=== PATIENT | male | born 1960 | race Caucasian/White ===

== ENCOUNTER 2021-11-09 10:59 | Outpatient (REF) | payer OTHER, SELFPAY ==
[2021-11-09 11:03] LABS: MANUAL DIFF FLAG NO
[2021-11-09 11:08] LABS: Basophils Percent Auto 0.5 % (0-2); Eosinophils Absolute Auto 0.2 X10*3/uL (0.0-0.4); Hematocrit 49.8 % (42.0-52.0); Hemoglobin 16.2 g/dl (14.0-18.0); Imm Gran Abs Auto 0.03 X10*3/uL (0.00-0.03); Imm Gran Pct Auto 0.4 % (0.0-0.4); Lymphocytes Absolute Auto 1.8 X10*3/uL (1.2-4.9); Lymphocytes Percent Auto 24.3 % (20-40); Mean Corpuscular HGB Conc 32.5 g/dl (31.0-36.0); Mean Corpuscular Hemoglobin 31.7 pg (27.0-33.0); Mean Corpuscular Volume 97.5 fL (80.0-98.0); Mean Platelet Volume 10.2 fL (9.4-12.4); Monocytes Absolute Auto 0.7 X10*3/uL (0.1-1.2); Monocytes Percent Auto 9.8 % (2-11); Neutrophils Absolute Auto 4.8 x10*3/uL (2.0-8.3); Platelet Count 232 X10*3/uL (160-400); Red Blood Count 5.11 X10*6/uL (4.60-5.80); Red Cell Distribution Width 12.9 % (11.0-16.0); White Blood Count 7.6 X10*3/uL (4.8-10.8)
[2021-11-09 11:15] LABS: Appearance Urine CLEAR; Color Urine YELLOW; Glucose Urine UA NEG (NEG); Leukocyte Esterase Urine NEG (NEG); Nitrite Urine NEG (NEG); Specific Gravity - Urine 1.025 (1.005-1.025); Urine Blood NEG (NEG); Urine Ketones NEG (NEG); Urine Protein NEG (NEG-TRACE)
[2021-11-09 12:34] LABS: PSA,Total (Free>4and<10) 4.54 ng/mL (0.00-4.00)
[2021-11-09 12:47] LABS: Alanine Aminotransferase 16 U/L (0-40); Albumin Level 4.2 g/dL (3.5-5.0); Alkaline Phosphatase 55 U/L (39-117); Anion Gap 16 (12-20); Aspartate Amino Transferase 17 U/L (5-37); Bilirubin Total 0.6 mg/dL (0.0-1.0); Blood Urea Nitrogen 19 mg/dL (9-16); Calcium 9.6 mg/dL (8.4-10.2); Carbon Dioxide 25 mmol/L (22-29); Chloride 106 mmol/L (96-108); Cholesterol 159 mg/dL; Estimated Glomerular Filt Rate > 60; Glucose Fasting 87 mg/dL (60-99); HDL Cholesterol 47 mg/dL; LDL Cholesterol Calculated 96 mg/dl; Potassium 4.3 mmol/L (3.3-5.1); Sodium 143 mmol/L (135-145); Total Protein 6.8 g/dL (6.5-8.0); Triglycerides 84 mg/dL
[2021-11-10 14:20] LABS: Free Prostate Spec Ag 0.8 ng/mL; Percent Free Prostate Spec Ag 18 % (calc) (>25); Prostate Specific Ag Total 4.4 ng/mL (< OR = 4.0)
== END 2021-11-09 11:00 | disposition home or self-care (01) ==
LOC: HO.LNP 10:59
PROVIDERS: PCP Internal Medicine; Visit Provider Internal Medicine
DX: Z00.00 Encounter for general adult medical examination without abnormal findings (principal); Z12.5 Encounter for screening for malignant neoplasm of prostate; D72.829 Elevated white blood cell count, unspecified
CPT/HCPCS: 80053; 80061; 81003; 84153; 84154; 85025

== ENCOUNTER 2021-12-03 08:10 | Outpatient (REF) | payer OTHER, SELFPAY ==
[2021-12-03 11:52] LABS: PSA,Total (Free>4and<10) 2.39 ng/mL (0.00-4.00)
== END 2021-12-03 08:11 | disposition home or self-care (01) ==
LOC: HO.LNP 08:10
PROVIDERS: Visit Provider Internal Medicine
DX: Z12.5 Encounter for screening for malignant neoplasm of prostate (principal); R97.20 Elevated prostate specific antigen [PSA]
CPT/HCPCS: 84153

== ENCOUNTER 2022-11-08 11:38 | Outpatient (REF) | payer OTHER, SELFPAY ==
[2022-11-08 11:42] LABS: MANUAL DIFF FLAG NO
[2022-11-08 12:12] LABS: Basophils Absolute Auto 0.1 X10*3/uL (0.0-0.2); Basophils Percent Auto 1.3 % (0-2); Eosinophils Absolute Auto 0.3 X10*3/uL (0.0-0.4); Hematocrit 49.4 % (42.0-52.0); Hemoglobin 16.2 g/dl (14.0-18.0); Imm Gran Abs Auto 0.02 X10*3/uL (0.00-0.03); Imm Gran Pct Auto 0.3 % (0.0-0.4); Lymphocytes Absolute Auto 1.9 X10*3/uL (1.2-4.9); Lymphocytes Percent Auto 28.7 % (20-40); Mean Corpuscular HGB Conc 32.8 g/dl (31.0-36.0); Mean Corpuscular Hemoglobin 30.9 pg (27.0-33.0); Mean Corpuscular Volume 94.3 fL (80.0-98.0); Mean Platelet Volume 10.3 fL (9.4-12.4); Monocytes Absolute Auto 0.7 X10*3/uL (0.1-1.2); Monocytes Percent Auto 10.3 % (2-11); Neutrophils Absolute Auto 3.7 x10*3/uL (2.0-8.3); Neutrophils Percent Auto 55.4 % (45-73); Platelet Count 223 X10*3/uL (160-400); Red Blood Count 5.24 X10*6/uL (4.60-5.80); Red Cell Distribution Width 13.9 % (11.0-16.0); White Blood Count 6.7 X10*3/uL (4.8-10.8)
[2022-11-08 12:20] LABS: Appearance Urine Clear; Color Urine Yellow; Glucose Urine UA Negative (Negative); Leukocyte Esterase Urine Negative (Negative); Nitrite Urine Negative (Negative); PH 7.5 (5.0-9.0); Urine Blood Negative (Negative); Urine Ketones Negative (Negative); Urine Protein Negative (Neg-Trace)
[2022-11-08 12:56] LABS: Alanine Aminotransferase 17 U/L (0-40); Alkaline Phosphatase 53 U/L (39-117); Anion Gap 14 (12-20); Aspartate Amino Transferase 16 U/L (5-37); Bilirubin Total 0.6 mg/dL (0.0-1.0); Blood Urea Nitrogen 16 mg/dL (9-16); Calcium 9.2 mg/dL (8.4-10.2); Carbon Dioxide 26 mmol/L (22-29); Chloride 108 mmol/L (96-108); Cholesterol 161 mg/dL; Estimated Glomerular Filt Rate > 60; Glucose Fasting 106 mg/dL (60-99); HDL Cholesterol 51 mg/dL; LDL Cholesterol Calculated 93 mg/dl; Potassium 4.4 mmol/L (3.3-5.1); Sodium 144 mmol/L (135-145); Total Protein 6.2 g/dL (6.5-8.0); Triglycerides 85 mg/dL
[2022-11-08 13:03] LABS: PSA,Total (Free>4and<10) 3.39 ng/mL (0.00-4.00)
== END 2022-11-08 11:39 | disposition home or self-care (01) ==
LOC: HO.LNP 11:38
PROVIDERS: Visit Provider Internal Medicine
DX: Z00.00 Encounter for general adult medical examination without abnormal findings (principal); Z12.5 Encounter for screening for malignant neoplasm of prostate; D72.829 Elevated white blood cell count, unspecified
CPT/HCPCS: 80053; 80061; 81003; 84153; 85025

== ENCOUNTER → 2023-01-17 13:30 | Outpatient (BNVA) | payer OTHER, SELFPAY | PROVIDERS: PCP Internal Medicine; Visit Provider Surgery | DX: Z13.89 Encounter for screening for other disorder (principal) ==

== ENCOUNTER 2023-02-25 06:29 | Day surgery (SDC) | payer OTHER, SELFPAY ==
[2023-02-23 10:57] VITALS: BMI 26.4
--- NOTE | 2023-02-24 10:32 | HO.ANESPROP2 ---
Documented by User: Wendie Alegre NP 02/24/23 10:35 HPI - Anesthesia Eval Consult details Narrative: 62yo M for Colonoscopy with possible Polypectomy PMFSH Active Problems Active Problems: All Active Problems (Updated 01/17/23 @ 14:00 by Ruy Moses MD) Colon cancer screening (Acute) Past Medical History Medical History Colon cancer screening COVID Family History Family History Father Colon cancer, Onset Age: 60 Pancreatic cancer, Onset Age: 80 Mother Pancreatic cancer, Onset Age: 76 Paternal Grandfather Colon cancer, Onset Age: 80 Maternal Grandmother Colon cancer, Onset Age: 50 Maternal Aunt Breast cancer Surgical History Surgical History Hx of colonoscopy with polypectomy Social History Social History Alcohol intake: current Alcohol intake frequency: holidays/special occasions only Patient Tobacco Use Status: Never used Tobacco Use of substances other than those prescribed or required for medical reasons: No Are you DNR?: No Advance Directives: No Advance Directives Information Provided: Yes Meds Allergies Allergy/AdvReac Type Severity Reaction Status Date / Time clams AdvReac Severe SEVERE Unverified 01/17/23 13:43 VOMITING Exam Exam Date and Time: February 24, 2023 1032 Height,Weight and Vital Signs: Height 5 ft 11 in Weight 85.842 kg Pertinent Lab Results Pertinent Lab Results: Laboratory Tests 11/08/22 11/08/22 Unknown Unknown WBC 6.7 Hgb 16.2 Hct 49.4 Plt Count 223 Sodium 144 Potassium 4.4 Chloride 108 Carbon Dioxide 26 BUN 16 Creatinine 0.99 Assessment and Plan Assessment Anesthesia Assessment: Chart Reviewed Documented by User: Reddy Figueroa MD 02/25/23 08:30 PMFSH Past Medical History Medical History Colon cancer screening COVID Family History Family History Father Colon cancer, Onset Age: 60 Pancreatic cancer, Onset Age: 80 Mother Pancreatic cancer, Onset Age: 76 Paternal Grandfather Colon cancer, Onset Age: 80 Maternal Grandmother Colon cancer, Onset Age: 50 Maternal Aunt Breast cancer Family history of problems with anesthesia: No Surgical History Surgical History Hx of colonoscopy with polypectomy History of Problems with Anesthesia: No Social History Social History Alcohol intake: current Alcohol intake frequency: holidays/special occasions only Patient Tobacco Use Status: Never used Tobacco Use of substances other than those prescribed or required for medical reasons: No Are you DNR?: No Advance Directives: No Advance Directives Information Provided: Yes Meds Allergies Allergy/AdvReac Type Severity Reaction Status Date / Time clams AdvReac Severe SEVERE Unverified 01/17/23 13:43 VOMITING Exam Airway Mallampati Class: II TM Dist: >3cm Neck ROM: Full Heart: ok Lungs: ok Assessment and Plan Final Anesthetic Review Family History of Problems with Anesthesia: No History of Problems with Anesthesia: No NPO: Yes ASA Class: I Final Preanesthetic Review: No Changes in Pt Med Stat, Meds/Allgs Chart Reviewed, Consent Obtained/Reviewed and Anes Risks/Benef Reviewed Patient Risk: Low Procedure Risk: Low Anesthetic Plan Anesthetic Plan: MAC: and Agree w/ Assess. and Plan Disposition: Standard PACU
[2023-02-25 06:53] VITALS: BP 148/87; PULSE 74; RESP 16; TEMP 36.8; O2SAT 98; BMI 26.4
[2023-02-25] MEDS: Lactated Ringers 1,000 ML 100 ML IVCONT (07:02)
--- NOTE | 2023-02-25 07:17 | P.HPSUR_ITS ---
Pre-Procedural Eval Section A Date of Service: 02/25/23 Section B Chief Complaint: Encounter for screening for malignant neoplasm Details of Present Illness: Has history polyp in the cecum Relevant Social History: None Present Medications: None Medical History: No relevant PMH History of Previous Operations: No relevant previous surgery Allergies: Allergies Allergy/AdvReac Type Severity Reaction Status Date / Time clams AdvReac Severe SEVERE Unverified 01/17/23 13:43 VOMITING Review of Systems Sugical H&P ROS: Negative: Constitution, Cardiovascular, Respiratory, Neurological, Psychiatric, Hem-Onc, Allergic/Immunologic, Gastrointestinal, Genitourinary, Musculoskeletal, Integumentary, Endocrine and Eyes/Ears/Nose/Throat Exam Surgical H&P Exam: Normal: HEENT, Normal: Heart, Normal: Lungs, Normal: E xtremities, Normal: Abdomen, Normal: Skin and Normal: Neurological Plan Diagnosis/Plan: Unchanged I have reviewed the history and physical and performed a pertinent physical examination on my patient. No changes have occurred unless specified. Time Spent With Patient Time: Total time managing care of this patient today ____ minutes.
--- NOTE | 2023-02-25 08:48 | P.OP_ITS ---
Operative Note Operative Note Date of Service: 02/25/23 Narrative: Preop diagnosis: History of flat polyp in the cecum Postop diagnose: Normal colonoscopy findings Procedure: Colonoscopy Surgeon: Ruy Moses MD The patient is a 62-year-old male who had a flat polyp removed from the cecum next to the appendiceal orifice on his last colonoscopy. This was actually a lymphoid nodule on pathology. I had recommended a follow-up colonoscopy in a short interval to ensure that there was no adenomatous missed because of the flat nature of this lesion. He understood the technique of the procedure as well as the risks, benefits, and alternatives. The patient was brought to the operating room and placed in left lateral decubitus position under monitored anesthesia care. A surgical time-out was done. A full digital rectal exam was done and this did not reveal any signific ant anal lesions. The tip of the Olympus colonoscope was gently introduced through the anal orifice advanced with insufflation all the way to the cecum. The cecum was intubated. The cecum was identified by visualization of the ileocecal valve as well as the appendiceal orifice. The cecal mucosa was unremarkable. The scope was gradually withdrawn with careful examination of the entire colonic mucosa being done with scope withdrawal. The patient had adequate bowel prep so it was unlikely that any lesion may have been missed. The rectum was reached and there were no lesions seen. The anal canal was unremarkable. The scope was then withdrawn completely with desufflation. The patient tolerated procedure well. There were no immediate complications. His next colonoscopy may be in the next 10 years.
[2023-02-25 08:54] VITALS: BP 117/77; PULSE 67; RESP 18; TEMP 36.3; O2SAT 96
[2023-02-25 09:09] VITALS: BP 116/82; PULSE 63; RESP 18; TEMP 36.4; O2SAT 97
== END 2023-02-25 09:45 | disposition home or self-care (01) ==
PROVIDERS: PCP Internal Medicine; Visit Provider Surgery
PROC: 0DBE8ZZ Excision of Large Intestine, Via Natural or Artificial Opening Endoscopic (ICD-10-PCS; CPT 45378; principal; 2023-02-25 08:30)
DX: Z12.11 Encounter for screening for malignant neoplasm of colon (principal); Z86.010 Personal history of colon polyps
CPT/HCPCS: 45378

== ENCOUNTER → 2023-03-10 14:12 | Outpatient (BNVA) | payer OTHER, SELFPAY | PROVIDERS: PCP Internal Medicine; Visit Provider Surgery ==

== ENCOUNTER 2023-11-14 10:50 | Outpatient (REF) | payer OTHER, SELFPAY ==
[2023-11-14 10:53] LABS: MANUAL DIFF FLAG NO
[2023-11-14 11:10] LABS: Basophils Absolute Auto 0.1 X10*3/uL (0.0-0.2); Basophils Percent Auto 0.8 % (0-2); Eosinophils Absolute Auto 0.2 X10*3/uL (0.0-0.4); Eosinophils Percent Auto 2.4 % (0-4); Hematocrit 48.4 % (42.0-52.0); Hemoglobin 16.2 g/dl (14.0-18.0); Imm Gran Abs Auto 0.02 X10*3/uL (0.00-0.03); Imm Gran Pct Auto 0.3 % (0.0-0.4); Lymphocytes Absolute Auto 2.1 X10*3/uL (1.2-4.9); Lymphocytes Percent Auto 29.5 % (20-40); Mean Corpuscular HGB Conc 33.5 g/dl (31.0-36.0); Mean Corpuscular Volume 95.7 fL (80.0-98.0); Mean Platelet Volume 10.4 fL (9.4-12.4); Monocytes Absolute Auto 0.7 X10*3/uL (0.1-1.2); Monocytes Percent Auto 9.9 % (2-11); Neutrophils Absolute Auto 4.1 x10*3/uL (2.0-8.3); Neutrophils Percent Auto 57.1 % (45-73); Platelet Count 224 X10*3/uL (160-400); Red Blood Count 5.06 X10*6/uL (4.60-5.80); Red Cell Distribution Width 13.1 % (11.0-16.0); White Blood Count 7.1 X10*3/uL (4.8-10.8)
[2023-11-14 11:15] LABS: Appearance Urine Clear; Color Urine Yellow; Glucose Urine UA Negative (Negative); Leukocyte Esterase Urine Negative (Negative); Nitrite Urine Negative (Negative); PH 7.5 (5.0-9.0); Specific Gravity - Urine 1.025 (1.005-1.025); Urine Blood Negative (Negative); Urine Ketones Trace mg/dL (Negative); Urine Protein Negative (Neg-Trace)
[2023-11-14 11:21] LABS: Bacteria Urine None Seen (None Seen); Hyaline Casts Urine 0-2 /LPF (0-2); RBC Urine 0-2 /HPF (0-2); Squamous Epithelial Cell Urine 0-2 /HPF (0-2); WBC Urine 0-5 /HPF (0-5)
[2023-11-14 11:27] LABS: Alanine Aminotransferase 19 U/L (0-40); Albumin Level 3.9 g/dL (3.5-5.0); Alkaline Phosphatase 47 U/L (39-117); Anion Gap 12 (12-20); Aspartate Amino Transferase 19 U/L (5-37); Bilirubin Total 0.6 mg/dL (0.0-1.0); Blood Urea Nitrogen 13 mg/dL (9-16); Calcium 9.1 mg/dL (8.4-10.2); Carbon Dioxide 26 mmol/L (22-29); Chloride 109 mmol/L (96-108); Estimated Glomerular Filt Rate > 60; Glucose Fasting 89 mg/dL (60-99); Potassium 4.3 mmol/L (3.3-5.1); Sodium 143 mmol/L (135-145); Total Protein 6.4 g/dL (6.5-8.0)
[2023-11-14 12:19] LABS: PSA,Total (Free>4and<10) 3.82 ng/mL (0.00-4.00)
== END 2023-11-14 10:51 | disposition home or self-care (01) ==
LOC: HO.LNP 10:50
PROVIDERS: Visit Provider Internal Medicine
DX: Z00.00 Encounter for general adult medical examination without abnormal findings (principal); Z12.5 Encounter for screening for malignant neoplasm of prostate; D72.829 Elevated white blood cell count, unspecified
CPT/HCPCS: 80053; 81001; 84153; 85025

== ENCOUNTER 2024-05-21 11:09 | Outpatient (REF) | payer OTHER, SELFPAY ==
[2024-05-21 12:34] LABS: PSA,Total (Free>4and<10) 4.73 ng/mL (0.00-4.00)
[2024-05-22 11:04] LABS: Free Prostate Spec Ag 0.6 ng/mL; Percent Free Prostate Spec Ag 14 % (calc) (>25); Prostate Specific Ag Total 4.3 ng/mL (< OR = 4.0)
== END 2024-05-21 11:10 | disposition home or self-care (01) ==
LOC: HO.LNP 11:09
PROVIDERS: Visit Provider Internal Medicine
DX: Z12.5 Encounter for screening for malignant neoplasm of prostate (principal); R97.20 Elevated prostate specific antigen [PSA]
CPT/HCPCS: 84153; 84154

== ENCOUNTER 2024-11-15 07:15 | Outpatient (REF) | payer OTHER, SELFPAY ==
[2024-11-15 12:11] LABS: MANUAL DIFF FLAG NO
[2024-11-15 12:29] LABS: Appearance Urine Clear; Color Urine Yellow; Glucose Urine UA Negative (Negative); Leukocyte Esterase Urine Negative (Negative); Nitrite Urine Negative (Negative); Specific Gravity - Urine 1.015 (1.005-1.025); Urine Blood Negative (Negative); Urine Ketones Negative (Negative); Urine Protein Negative (Neg-Trace)
[2024-11-15 12:30] LABS: Basophils Absolute Auto 0.1 X10*3/uL (0.0-0.2); Basophils Percent Auto 0.7 % (0-2); Eosinophils Absolute Auto 0.2 X10*3/uL (0.0-0.4); Eosinophils Percent Auto 2.7 % (0-4); Hematocrit 49.2 % (42.0-52.0); Hemoglobin 16.5 g/dl (14.0-18.0); Imm Gran Abs Auto 0.02 X10*3/uL (0.00-0.03); Imm Gran Pct Auto 0.3 % (0.0-0.4); Lymphocytes Absolute Auto 2.1 X10*3/uL (1.2-4.9); Lymphocytes Percent Auto 29.2 % (20-40); Mean Corpuscular HGB Conc 33.5 g/dl (31.0-36.0); Mean Corpuscular Hemoglobin 32.3 pg (27.0-33.0); Mean Corpuscular Volume 96.3 fL (80.0-98.0); Mean Platelet Volume 10.4 fL (9.4-12.4); Monocytes Absolute Auto 0.8 X10*3/uL (0.1-1.2); Neutrophils Percent Auto 56.1 % (45-73); Platelet Count 228 X10*3/uL (160-400); Red Blood Count 5.11 X10*6/uL (4.60-5.80); Red Cell Distribution Width 12.6 % (11.0-16.0); White Blood Count 7.1 X10*3/uL (4.8-10.8)
[2024-11-15 12:53] LABS: Alanine Aminotransferase 19 U/L (0-40); Alkaline Phosphatase 46 U/L (39-117); Anion Gap 10 (12-20); Aspartate Amino Transferase 24 U/L (5-37); Bilirubin Total 0.5 mg/dL (0.0-1.0); Blood Urea Nitrogen 16 mg/dL (9-16); Calcium 8.8 mg/dL (8.4-10.2); Carbon Dioxide 26 mmol/L (22-29); Chloride 110 mmol/L (96-108); Cholesterol 167 mg/dL (<200); Estimated Glomerular Filt Rate > 60; Glucose Fasting 101 mg/dL (60-99); HDL Cholesterol 44 mg/dL (>40); LDL Cholesterol Calculated 100 mg/dL (<100); Potassium 4.7 mmol/L (3.3-5.1); Sodium 141 mmol/L (135-145); Total Protein 6.7 g/dL (6.5-8.0); Triglycerides 116 mg/dL (<150)
[2024-11-15 13:05] LABS: PSA,Total (Free>4and<10) 4.46 ng/mL (0.00-4.00)
--- OUTSIDE RECORDS SUMMARY | 2024-11-15 16:02 | XMS_ITS ---
Author Organization Eder Menendez MD Address [address] [place], [place] [phone] Care Team Providers Care Bedspread Folder Name Role Phone Eder Menendez Primary Care Provider Results Component Value Reference Range Notes Complete Blood Count Auto Di ff (Not yet reviewed by provider) Interpretation: Performing Lab:[facility], [address] [place] [phone] Notes/Report: White Blood Count 7.1 4.8-10.8 X10*3/uL Red Blood Count 5.11 4.60-5.80 X10*6/uL Hemoglobin 16.5 14.0-18.0 g/dl Hematocrit 49.2 42.0-52.0 % Mean Corpuscular Volume 96.3 80.0-98.0 fL Mean Corpuscular Hemoglobin 32.3 27.0-33.0 pg Mean Corpuscular HGB Conc 33.5 31.0-36.0 g/dl Red Cell Distribution Width 12.6 11.0-16.0 % Platelet Count 228 160-400 X10*3/uL Mean Platelet Volume 10.4 9.4-12.4 fL Neutrophils Percent Auto 56.1 45-73 % Imm Gran Pct Auto 0.3 0.0-0.4 % Lymphocytes Percent Auto 29.2 20-40 % Monocytes Percent Auto 11.0 2-11 % Eosinophils Percent Auto 2.7 0-4 % Basophils Percent Auto 0.7 0-2 % NRBC Pct Auto 0.0 0.0-0.2 /100WBC Neutrophils Absolute Auto 4.0 2.0-8.3 x10*3/u L Imm Gran Abs Auto 0.02 0.00-0.03 X10*3/uL Lymphocytes Absolute Auto 2.1 1.2-4.9 X10*3/u L Monocytes Absolute Auto 0.8 0.1-1.2 X10*3/uL Eosinophils Absolute Auto 0.2 0.0-0.4 X10*3/u L Basophils Absolute Auto 0.1 0.0-0.2 X10*3/uL NRBC Abs Auto 0.000 0.0-0.012 X10*3/uL Comprehensive [place]. Panel Fa st (Not yet reviewed by provider) Interpretation: Performing Lab:[address] [phone] Notes/Report: Sodium 141 135-145 mmol/L Potassium 4.7 3.3-5.1 mmol/L Chloride 110 96-108 mmol/L Carbon Dioxide 26 22-29 mmol/L Anion Gap 10 12-20 Blood Urea Nitrogen 16 9-16 mg/dL Creatinine 0.87 0.5-1.4 mg/dL Estimated Glomerular Filt Rate > 60 Chronic Kidney Disease: Estimated GFR < 60 mL/min/1.73m2 Severe Kidney Disease: Estimated GFR < 15 mL/min/1.73m2 Glucose Fasting 101 60-99 mg/dL A fasting glucose from 100-125 mg/dl is considered impaired (pre-diabetes). Calcium 8.8 8.4-10.2 mg/dL Bilirubin Total 0.5 0.0-1.0 mg/dL Aspartate Amino Transferase 24 5-37 U/L Alanine Aminotransferase 19 0-40 U/L Total Protein 6.7 6.5-8.0 g/dL Albumin Level 4.0 3.5-5.0 g/dL Alkaline Phosphatase 46 39-117 U/L Lipid Panel (Not yet reviewe d by provider) Interpretation: Performing Lab:[facility], [address] [place] [phone] Notes/Report: Triglycerides 116 <150 mg/dL Desirable Triglyceride: less than 150 mg/dL Borderline High Triglyceride 150-199 mg/dL High Triglyceride: 200-499 mg/dL Very High Triglyceride: greater than or equal to 5OO mg/dL Cholesterol 167 <200 mg/dL Desirable Cholesterol: less than 200 mg/dL Borderline High Cholesterol: 200-239 mg/dL High Cholesterol: greater than 239 mg/dL LDL Cholesterol Calculated 100 <100 mg/dL Desirable LDL: less than 100 mg/dL Near Optimal/Above Optimal LDL: 110-129 mg/dL Borderline High LDL: 130-159 mg/dL High LDL: 160-189 mg/dL Very High LDL: greater than or equal to 190 mg/dL HDL Cholesterol 44 >40 mg/dL Desirable HDL: greater than 40 mg/dL Note: This HDL assay may give artificially low results in patients with liver disease. PSA,Total (Free>4and<10) (No t yet reviewed by provider) Interpretation: Performing Lab:[facility], [address] [place] [phone] Notes/Report: PSA,Total (Free>4and<10) 4.46 0.00-4.00 ng/mL PSA methodology: [employer] Alinity i Chemiluminescent Microparticle Immunoassay (CMIA) REASON FOR VISIT FASTING LABS Encounters Encounter Location Date Provider Diagnosis Eder Menendez MD [address] [place] [address] [place] [phone] 11/15/2024 Eder Menendez Blood tests for routine general physical examination Z00.00 and Leukocytosis, unspecified type D72.829 Assessments Encounter Date Diagnosis (ICD Code) Assessment Notes Treatment Notes Treatment Clinical Notes Section Notes 11/15/2024 Blood tests for routine general physical examination (ICD-10 - Z00.00) 11/15/2024 Leukocytosis, unspecified type (ICD-10 - D72.829) Plan Of Treatment Pending Test Test Name Order Date Complete Blood Count Auto Diff 5 Comprehensive [place]. Panel Fast 5 Lipid Panel 11/15/2024 PSA,Total (Free>4and<10) 11/15/2024 UA ClnCatch+Micro w/rflx Cult 11/15/2024 Next Appt Details Provider Name:Eder Alonzo ier, 11/22/2024 03:30:00 PM, [address] [place] [address] Drive, [address], [place], [place], [phone], Provider Name:Eder Alonzo ier, 12/04/2024 01:30:00 PM, [address], [address], [place], [phone], Progress Notes * Kam ZHOU RDOB: [birth year] (64 yo M)Acc No.[id number]:11/15/2024 Progress Note Patient:?Kam ZHOU Provider:?Eder Menendez MD :1960???Age:64 Y???Sex:Male Sharan e:11/15/2024 Address:[address] [place], [place] [address] Subjective: * Chief Complaints: * ???1. FASTING LABS. * Medical History:? Objective: * Vitals:? Assessment: * Assessment: 1.?Blood tests for routine g eneral physical examination - Z00.00 (Primary)???2.?Leukocytosis, unspecified type - D72.829??? Plan: * Treatment: 2.?Leukocytosis, unspecified type?LAB: Complete Blood Count Auto Diff (Collection Date & Time - 11/15/2024 07:00 AM) ?LAB: [facility] [place]. Panel Fast (Collection Date & Time - 11/15/2024 07:00 AM) ?LAB: Lipid Panel (Collection Date & Time - 11/15/2024 07:00 AM) ?LAB: PSA,Total (Free>4and<10) (Collection Date & Time - 11/15/2024 07:00 AM) ?LAB: UA ClnCatch+Micro w/rflx Cult * Procedure Codes:?99398 VENIP UNCT, ROUTINE* * * The named appointment provid er may or may not be the originator of this progress note, and it is not deemed complete until electronically signed by the appointment provider. Sign off status: Pending * Provider:?Eder Menendez MD Date:?0 11/15/2024 Generated for Blanei gutierrez/Randy/eTransmitting on:?11/15/2024 04:02 PM EST
--- OUTSIDE RECORDS SUMMARY | 2024-11-15 16:02 | XMS_ITS ---
Author Organization Eder Menendez MD Address [address] [place], [place] [phone] Care Team Providers Care Retail Key Holder Name Role Phone Eder Menendez Primary Care Provider Results Component Value Reference Range Notes PSA,Total (Free>4and<10) Reviewed date:06/04/2024 08:04:50 AM Interpretation:WILLIAM 06/01 Performing Lab:[facility], [address] [place] [phone] Notes/Report: PSA,Total (Free>4and<10) 4.73 0.00-4.00 ng/mL PSA methodology: [employer] Alinity i Chemiluminescent Microparticle Immunoassay (CMIA) REASON FOR VISIT PSA, TOTAL Encounters Encounter Location Date Provider Diagnosis Eder Menendez MD [address] [place] [phone] 05/21/2024 Eder Menendez Elevated PSA R97.20 Assessments Encounter Date Diagnosis (ICD Code) Assessment Notes Treatment Notes Treatment Clinical Notes Section Notes 05/21/2024 Elevated PSA (ICD-10 - R97.20) Plan Of Treatment Next Appt Details Provider Name:Eder lincoln, 11/22/2024 03:30:00 PM, [address] [facility], [address] [facility], [place], [place], [phone], Provider Name:Eder alonzor, 12/04/2024 01:30:00 PM, [address] [facility], [address], [place], [place], [phone], Progress Notes * Kam ZHOU RDOB: [birth year] (64 yo M)Acc No.[id number]:05/21/2024 Progress Note Patient:?Kam ZHOU Provider:?Eder Menendez MD :1960???Age:63 Y???Sex:Male Sharan e:05/21/2024 Address:[address] [place], [place] [phone] Subjective: * Chief Complaints: * ???1. PSA, TOTAL. * Medical History:? Objective: * Vitals:? Assessment: * Assessment: 1.?Elevated PSA - R97.20 (Pr imary)??? Plan: * Treatment: * Procedure Codes:?91085 VENIP UNCT, ROUTINE* * * The named appointment provid er may or may not be the originator of this progress note, and it is not deemed complete until electronically signed by the appointment provider. Sign off status: Pending * Provider:?Eder Menendez MD Date:?0 05/21/2024 Generated for Nathaniel whitley/Randy/Bettyitting on:?11/15/2024 04:01 PM EST
--- OUTSIDE RECORDS SUMMARY | 2024-11-15 16:02 | XMS_ITS ---
Author Organization Eder Menendez MD Address [address] [place], [place] [phone] Care Team Providers Care Operational Risk Manager Name Role Phone Gemma Eder Primary Care Provider [phone] Allergies No Known Allergies Reason For Referral Reason elevated PSA Diagnosis 1 Elevated PSA (R97.20 ) Referral Organization Eder Menendez MD Referring Provider First Name Eder Referring Provider Last Name Gemma Referring Provider Speciality Internal M edicine Referred Provider Alton French Referred Provider Specialty Urology General Notes Amy Lee 03:16:02 PM EDT > info faxed , Amy Lee 06/08/2024 08:44:22 AM EDT > patint is aware of Cherise peters Patti A 06/21/2024 11:02:29 AM EDT > NOTES RECEIVED Referral Priority Routine Referral Appointment Date 06/19/2024 REASON FOR VISIT 6 MO F/U, CBACK PSA Medications Medication SIG (Take, Route, Frequency, Duration) Notes Start Date End Date Status Propranolol HCl ER 60 MG TAKE 1 CAPSULE BY MOUTH EVERY DAY FOR 30 DAYS for 90 Active Vital Signs Blood pressure systolic 112 mm Hg 06/01/20 24 Blood pressure diastolic 66 mm Hg 024 Height 72 in 06/01/2024 Weight 185 lbs 06/01/2024 BMI 25.09 kg/m2 06/01/2024 weight is down 2 pounds [facility] 224 Encounters Encounter Location Date Provider Diagnosis Eder Menendez MD [address] [place] [address] Drive [address] [place], [place] [phone] 06/01/2024 Eder Menendez Elevated PSA R97.20 Assessments Encounter Date Diagnosis (ICD Code) Assessment Notes Treatment Notes Treatment Clinical Notes Section Notes 06/01/2024 Elevated PSA (ICD-10 - R97.20) referral to urology in [place]. send copy of last 4 years of psa Plan Of Treatment Treatment Notes Assessment Notes Elevated PSA referral to urology in [place]. send copy of last 4 years of psa Referrals Referral Date Details 06/01/2024 06/01/2024, elevated PSA , Alton French Next Appt Details Provider Name:Eder lincoln, 11/22/2024 03:30:00 PM, [address] [place] [address], Suite [facility], [place], [place], [phone], Provider Name:Eder lincoln, 12/04/2024 01:30:00 PM, [address] [place] [address], [address], [place], [place], [phone], Progress Notes * Kam ZHOU RDOB: [birth year] (63 yo M)Acc No.[id number]:06/01/2024 Progress Notes Patient:?Norberto Kam Figueroa Provider:?Eder Menendez MD :1960???Age:63 Y???Sex:Male Sharan e:06/01/2024 Address:[address] [place] [address] [facility] [id number] Subjective: * Chief Complaints: * ???6 MO F/UCBACK PSA * HPI: ???Symptom(s):? patient is a 63 yo male here for 6 month follow up visit, and follow up of PSA. * ROS:?General/Constitutional:?Denies?Chills.?Denies?Fatigue.?Denies?Fever.?Denies?Headache.?ENT:?Patient denies?decreased sense of smell, any loss of taste, sore throat.?Denies?Sore throat.?Respiratory:?Denies?Cough.?Denies?Shortness of breath at rest.?Denies?Shortness of breath with exertion.?Gastrointestinal:?Denies?Diarrhea.?Denies?Nausea.?Musculoskeletal:?Patient denies?muscle aches.?Peripheral Vascular:?Patient denies?red and blue toes.? * Medical History:? * Surgical History:? * Hospitalization/Major Diagno stic Procedure:? * Medications:?TakingPropranol ol HCl ER 60 MG Capsule Extended Release 24 Hour TAKE 1 CAPSULE BY MOUTH EVERY DAY FOR 30 DAYS Medication List reviewed and reconciled with the patientTaking Propranolol HCl ER 60 MG Capsule Extended Release 24 Hour TAKE 1 CAPSULE BY MOUTH EVERY DAY FOR 30 DAYS Medication List reviewed and reconciled with the patient * Allergies:?N.K.D.A.yes[Aller gies Verified] Objective: * Vitals:?Ht: 72, Wt:185, BMI: 25.09, BP:112/66 weight is down 2 pounds since 11-21-23. * Examination: ???General Examination: ?GENERAL APPEARANCE:? alert, well hydrated, in no distress .?HEAD:? normocephalic.?SKIN:? good turgor.?HEART:? regular rate and rhythm, no murmurs, rubs, gallops.?LUNGS:? no wheezes, rales, rhonchi, good air movement, clear to auscultation bilaterally.?ABDOMEN:? no hepatosplenomegaly, soft, nontender, nondistended.? Assessment: * Assessment: 1.?Elevated PSA - R97.20 (Pr imary)? Plan: * Treatment: * Procedure Codes:? * * Sign off status: Completed true * Provider:?Eder Menendez MD Date:?0 06/01/2024 Generated for Nathaniel whitley/Randy/Bettyitting on:?11/15/2024 04:01 PM EST History and Physical Notes * Examination Category Sub-Category Detail Notes Category Not es General Examination GENERAL APPEARANCE: alert, w ell hydrated, in no distress HEAD: normocephalic HEART: regular rate and rhy thm, no murmurs, rubs, gallops LUNGS: no wheezes, rales, r honchi, good air movement, clear to auscultation bilaterally ABDOMEN: no hepatosplenomegal y, soft, nontender, nondistended SKIN: good turgor Consultation Request Notes Referral Date Referring Provider Referred Provider Not es 06/01/2024 Eder Menendez William elevate d PSA
--- OUTSIDE RECORDS SUMMARY | 2024-11-15 16:02 | XMS_ITS ---
Author Name [facility] Organization Unknown Results Test Name/Text Value Interpretation Date Range Source TROPONIN I HIGH SENSITIVE 4.48ng/L Normal [id number] 0 - 78 [facility] SODIUM 139mmol/L Normal [id number] 136 - 145 [facility] GLUCOSE 142mg/dL Above high normal [id number] 74 - 100 [facility] BUN 14mg/dL Normal [id number] 7 - 18 [facility] CHLORIDE 105mmol/L Normal [id number] 98 - 107 [facility] POTASSIUM SERUM 4.4mmol/L Normal [id number] 3.5 - 5.1 C [facility] CO2 26mmol/L Normal [id number] 21 - 32 [facility] CREATININE 1.17mg/dL Normal [id number] 0.55 - 1.3 [facility] TROPONIN I HIGH SENSITIVE 4.91ng/L Normal [id number] 0 - 78 [facility] GFRE 67 Normal [id number] 60 - [facility] WBC 10.2K/uL Normal [id number] 3.7 - 10.3 [facility] ABSOLUTE GRANULOCYTES 8.1K/uL Above high normal [id number] 54 2.2 - 7.3 [facility] ABSOLUTE BASO 0.1K/uL Normal [id number] 0 - 0.2 [facility] RBC 5.09M/uL Normal [id number] 4.3 - 6 [facility] IMMATURE GRANULOCYTES 0% Normal [id number] 0 - 0 .45 [facility] EOSINOPHILS 1% Normal [id number] 0 - 6 [facility] MPV 10fL Normal [id number] 8 - 12 [facility] ABSOLUTE MONOS 0.6K/uL Normal [id number] 0.2 - 1.5 [facility] BASOPHILS 1% Normal [id number] 0 - 2 [facility] NUCLEATED RBC 0% Normal [id number] 0 - 0.2 [facility] MCV 96fL Normal [id number] 83 - 102 [facility] MCH 32PG Normal [id number] 27 - 34 [facility] HCT 48.7% Normal [id number] 40 - 52 [facility] ABSOLUTE LYMPHS 1.4K/uL Below low normal [id number] 1.5 - 4.9 [facility] GRANULOC[facility]TES 80% Above high normal [id number] 23 - 7 8 [facility] MONOCYTES 6% Normal [id number] 0 - 12 [facility] ABSOLUTE EOS 0.1K/uL Normal [id number] 0 - 0.7 [facility] HR LYMPHS 13% Below low normal [id number] 16 - 50 [facility] ABSOLUTE IMMATURE GRANULOCYTES 0K/uL Normal [id number] 0 - 0.3 [facility] HGB 16.2g/dL Normal [id number] 13.5 - 18 [facility] RDW 12.6% Normal [id number] 11.1 - 13.3 [facility] PLATELET COUNT 212K/uL Normal [id number] 150 - 480 [facility] MCHC 33.3g/dL Normal [id number] 31 - 36 [facility] ABSOLUTE NUCLEATED RBC 0K/uL Normal [id number] 0 - 0.012 [facility] PATIENT FASTING? UNKNOWN Normal [id number] [facility]
--- OUTSIDE RECORDS SUMMARY | 2024-11-15 16:02 | XMS_ITS | Patient Health Record ---
Author Organization Eder Menendez MD Address [address] [place], [place] [id number] Care Team Providers Care Automatic Glove Turner And Former Name Role Phone Eder Menendez Primary Care Provider Allergies No Known Allergies Results Component Value Reference Range Notes Occult Blood, Stool, Guaiac Reviewed date:11/21/2023 05:14:34 PM Interpretation:Negative Performing Lab: Notes/Report: Negative Occult Blood, Stool, Guaiac Neg PSA,Total (Free>4and<10) Reviewed date:06/04/2024 08:04:50 AM Interpretation:WILLIAM 06/01 Performing Lab:[facility], [address] [place] [phone] Notes/Report: PSA,Total (Free>4and<10) 4.73 0.00-4.00 ng/mL PSA methodology: Lara Alinity i Chemiluminescent Microparticle Immunoassay (CMIA) PSA Free and Total Reviewed date:06/04/2024 08:04:34 AM Interpretation:WILLIAM 06/01/24 PSA Performing Lab:[address] [phone] Notes/Report: Prostate Specific Ag Total 4.3 < OR = 4.0 ng/ mL Percent Free Prostate Spec Ag 14 >25 % (calc ) PSA(ng/mL) Free PSA(%) Estimated(x) Probability of Cancer(as%) 0-2.5 (*) Approx. 1 2.6-4.0(1) 0-27(2) 24(3) 4.1-10(4) 0-10 56 11-15 28 16-20 20 21-25 16 >or =26 8 >10(+) N/A >50 References:(1)Stephanie et al.:Urology 60: 469-474 (2001) (2)Stephanie et al.:J.Urol 168: 922-925 (2001) Free PSA(%) Sensitivity(%) Specificity(%) < or = 25 85 19 < or = 30 93 9 (3)Catalona et al.:ZULMA 277: 9299-0090 (1996) (4)Catalona et al.:ZULMA 279: 3796-8238 (1997) (x)These estimates vary with age, ethnicity, family history and HARPREET results. (*)The diagnostic usefulness of % Free PSA has not been established in patients with total PSA below 2.6 ng/mL (+)In men with PSA above 10 ng/mL, prostate cancer risk is determined by total PSA alone. The Total PSA value from this assay system is standardized against the equimolar PSA standard. The test result will be approximately 20% higher when compared to the WHO-standardized Total PSA (Siemens assay). Comparison of serial PSA results should be interpreted with this fact in mind. PSA was performed using the Chintan Francisco Immunoassay method. Values obtained from different assay methods cannot be used interchangeably. PSA levels, regardless of value, should not be interpreted as absolute evidence of the presence or absence of disease. THIS TEST WAS PERFORMED AT: [facility] [address] [place] [phone] YULISA ZEPEDA MD Free Prostate Spec Ag 0.6 UA CC w/rflx Micro + Cult (N ot yet reviewed by provider) Interpretation: Performing Lab:[facility], [address] [place] [phone] Notes/Report: [id number] Urine, Clean Catch Color Urine Yellow Appearance Urine Clear PH 6.0 5.0-9.0 Glucose Urine UA Negative Negative mg/dL Urine Blood Negative Negative Specific [place] - Urine 1.015 1.005-1.025 Urine Protein Negative Neg-Trace mg/dL Urine Ketones Negative Negative mg/dL Nitrite Urine Negative Negative Leukocyte Esterase Urine Negative Negative Complete Blood Count Auto Di ff (Not yet reviewed by provider) Interpretation: Performing Lab:[facility], [address] [place] [phone] Notes/Report: White Blood Count 7.1 4.8-10.8 X10*3/uL [...] NRBC Abs Auto 0.000 0.0-0.012 X10*3/uL Comprehensive [place]. Panel Fa st (Not yet reviewed by provider) Interpretation: Performing Lab:[facility], [address] [place] [phone] Notes/Report: Sodium 141 135-145 mmol/L Potassium 4.7 [...] yet reviewe d by provider) Interpretation: Performing Lab:[address] [phone] Notes/Report: Triglycerides 116 <150 mg/dL Desirable Triglyceride: [...] t yet reviewed by provider) Interpretation: Performing Lab:[address] [phone] Notes/Report: PSA,Total (Free>4and<10) 4.46 0.00-4.00 ng/mL PSA methodology: Lara Alinity i Chemiluminescent Microparticle Immunoassay (CMIA) Reason For Referral Reason elevated PSA Diagnosis 1 Elevated PSA (R97.20 ) Referral Organization Eder Menendez MD Referring Provider First Name Eder Referring Provider Last Name Gemma Referring Provider Speciality Internal M edicine Referred Provider Alton French Referred Provider Specialty Urology General Notes Amy Lee 03:16:02 PM EDT > info faxed , Amy Lee 06/08/2024 08:44:22 AM EDT > patint is aware of Elton petersshikhaKelliDeneen Zac 06/21/2024 11:02:29 AM EDT > NOTES RECEIVED Referral Priority Routine Referral Appointment Date 06/19/2024 Medications Medication SIG (Take, Route, Frequency, Duration) Notes Start Date End Date Status Propranolol HCl ER 60 MG TAKE 1 CAPSULE BY MOUTH EVERY DAY FOR 30 DAYS for 90 Active Immunizations Vaccine Route Administration Date Status Comme nts Flu Vaccine IM Intramuscular 10/26/2013 Administered Flu Vaccine IM Intramuscular 08/05/2014 Administered zFluzone Quadrivalent IM Intramuscular 09/01/2015 Administ ered Fluarix Quadrivalent IM Intramuscular 09/13/2016 Administe red Fluarix Quadrivalent IM Intramuscular 10/03/2017 Administe red Fluarix Quadrivalent IM Intramuscular 10/16/2018 Administe red Fluarix Quadrivalent IM Intramuscular 10/15/2019 Administe red Fluarix Quadrivalent IM Intramuscular 07/09/2020 Administe red Fluarix Quadrivalent IM Intramuscular 2021 Administe red SARS-COV-2 Pfizer Unknown 01/29/2021 Administered SARS-COV-2 Pfizer Unknown 02/19/2021 Administered SARS-COV-2 Pfizer Unknown 09/23/2021 Administered Fluarix Quadrivalent IM Intramuscular 11/08/2022 Administe red Social History Tobacco Use: Social History Observation Description Date Details (start date - stop date) Never Smoker NA - NA Tobacco Use/Smoking Question Answer Notes Patient is a nonsmoker Additional Findings: Tobacco Non-User Cu rrent non-smoker, currently using no form of tobacco Alcohol Screen Question Answer Notes Did you have a drink contain ing alcohol in the past year? Yes How often did you have a dri nk containing alcohol in the past year? Monthly or less (1 point) How many drinks did you have on a typical day when you were drinking in the past year? 1 or 2 drinks (0 point) How often did you have 6 or more drinks on one occasion in the past year? Never (0 point) Points 1 Interpretation Negative Problems Problem Type SNOMED Code ICD Code Onset Dates Problem Status W/U Status Risk Notes Problem 532996067 Essential tremor (G25.0) Active confirmed Problem Leukocytosis (893273410) Leukocytosis, unspecified type (D72.829) Active confirmed Problem [id number] Family hx of colon cancer (Z80.0) Active confirmed Vital Signs Blood pressure diastolic 66 mm Hg 06/01/2024 demond ght is down 2 pounds since 11-21-23 Height 72 in 06/01/2024 weight is down 2 pounds since 11-21-23 Blood pressure systolic 112 mm Hg 06/01/2024 weig ht is down 2 pounds since 11-21-23 Weight 185 lbs 06/01/2024 weight is down 2 pounds since 11-21-23 BMI 25.09 kg/m2 06/01/2024 weight is down 2 pounds since 11-21-23 Encounters Encounter Location Date Provider Diagnosis Eder Menendez MD [address] [place] [address] [address] [place] [id number] 05/21/2024 Eder Menendez Elevated PSA R97.20 Eder Menendez MD [address] [place] [address] Drive [address] [place] [id number] 11/15/2024 Eder Menendez Blood tests for routine general physical examination Z00.00 and Leukocytosis, unspecified type D72.829 Eder Menendez MD [address] [place] [address] Drive [address] [place] [id number] 11/21/2023 Eder Menendez Essential tremor G25.0 ; Annual physical exam Z00.00 ; Elevated PSA R97.20 ; Colon cancer screening Z12.11 and Depression screening Z13.31 Eder Menendez MD [address] [place] [address] Drive [address] [place] [id number] 06/01/2024 Eder Menendez Elevated PSA R97.20 Assessments Encounter Date Diagnosis (ICD Code) Assessment Notes Treatment Notes Treatment Clinical Notes Section Notes 05/21/2024 Elevated PSA (ICD-10 - R97.20) 11/15/2024 Blood tests for routine general physical examination (ICD-10 - Z00.00) 11/21/2023 Essential tremor (ICD-10 - G25.0) Patient/Caregiver verbalizes understanding of medications side effects, interactions and warnings. 11/21/2023 Annual physical exam (ICD-10 - Z00.00) labs reviewed and discussed with patient 06/01/2024 Elevated PSA (ICD-10 - R97.20) referral to urology in [place]. send copy of last 4 years of psa 11/15/2024 Leukocytosis, unspecified type (ICD-10 - D72.829) 11/21/2023 Elevated PSA (ICD-10 - R97.20) pending future lab, will contonue to monitor 11/21/2023 Colon cancer screening (ICD-10 - Z12.11) guaiac negative 11/21/2023 Depression screening (ICD-10 - Z13.31) negative screen Plan Of Treatment Pending Test Test Name Order Date Electrocardiogram (EKG) 09/17/2016 Electrocardiogram (EKG) 10/06/2017 Electrocardiogram (EKG) 10/19/2018 Complete Blood Count Auto Diff 5 Comprehensive [place]. Panel Fast 5 Lipid Panel 11/15/2024 PSA,Total (Free>4and<10) 11/15/2024 UA CC w/rflx Micro + Cult 11/15/2024 UA ClnCatch+Micro w/rflx Cult 11/15/2024 Next Appt Details Provider Name:Eder Alonzo ier, 11/22/2024 03:30:00 PM, [address] [place] [address] Drive, [address], [place], [place], [phone], Provider Name:Eder Alonzo ier, 12/04/2024 01:30:00 PM, [address], [address], [place], [place], [phone], Insurance Providers Payer Name Payer Address Payer Phone Subscriber Number Group Number Insured Name Patient Relationship to Insured Coverage Start Date Coverage End Date RAISSA HARO [address] TAHIR Garcia [phone] [id number] Kam Thornton Self - patient is the insured Medical (General) History Medical History History ICD Code Colonoscopy Dr. Oc corado [facility] due in 5 years; colonoscopy 02/17/[address] Moses - repeat 5 years, 02/25/23 colonoscopy f/u Leukocytosis, unspecified type D72.829
[2024-11-19 11:18] LABS: Free Prostate Spec Ag 0.5 ng/mL; Percent Free Prostate Spec Ag 10 % (calc) (>25); Prostate Specific Ag Total 5.1 ng/mL (< OR = 4.0)
== END 2024-11-15 07:16 | disposition home or self-care (01) ==
LOC: HO.LNP 07:15
PROVIDERS: Visit Provider Internal Medicine
DX: Z00.00 Encounter for general adult medical examination without abnormal findings (principal); D72.829 Elevated white blood cell count, unspecified; Z12.5 Encounter for screening for malignant neoplasm of prostate
CPT/HCPCS: 80053; 80061; 81003; 84153; 84154; 85025